=== PATIENT | female | born 1995 | race Caucasian/White ===

== ENCOUNTER → 2016-10-07 | Outpatient (CLI) | payer OTHER ==
--- NOTE | 2016-10-07 14:35 | CR ---
EXAMINATION: Two-view chest (PA and Lateral views). HISTORY: Abnormal breathing FINDINGS: The trachea is midline. The cardiomediastinal silhouette is within normal limits. No pulmonary infil trates, effusions or pneumothorax. Osseous structures appear unremarkable. IMPRESSION: No acute cardiopulmonary process.
== END ==
LOC: MW.CHRC 13:42
PROVIDERS: ATTEND Family Medicine
DX: R06.89 Other abnormalities of breathing (principal)
CPT/HCPCS: 36415; 71020; 71020-26; 85027; 87081; 87804; 87880

== ENCOUNTER 2016-10-09 21:21 | Emergency (ER) | payer OTHER ==
[2016-10-09] MEDS ORDERED: Acetaminophen/Codeine 120-12 MG/5 ML Soln 5 ML UD Cup PO ONE (21:43)
--- NOTE | 2016-10-09 21:48 | EDM.PDOC ---
ED HPI GENERAL MEDICAL PROBLEM - General Chief Complaint: Chest Pain Stated Complaint: CHEST PAIN/TROUBLE BREATHING /HEADACHE/COUGH Time Seen by Provider: 10/09/16 21:38 - History of Present Illness INITIAL COMMENTS - FREE TEXT/NARRATIVE: HISTORY AND PHYSICAL: History of present illness: Patient 21-year-old female recently diagnosed with pneumonia who is currently on Levaquin present since her chest pain she states this is worse with coughing she denies fever chills nausea vomiting or other concerns Review of systems: As per history of present illness and below otherwise all systems reviewed and negative. Past medical history: As per history of present illness and as reviewed below otherwise noncontributory. Surgical history: As per history of present illness and as reviewed below otherwise noncontributory. Social history: No reported history of drug or alcohol abuse. Family history: As per history of present illness and as reviewed below otherwise noncontributory. Physical exam: HEENT: Atraumatic, normocephalic, pupils reactive, negative for conjunctival pallor or scleral icterus, mucous membranes moist, throat clear, neck supple, nontender, trachea midline. Lungs: Coarse and lateral no wheezing breath sounds equal bilaterally, chest nontender. Heart: S1S2, regular, negative for clicks, rubs, or JVD. Abdomen: Soft, nondistended, nontender. Negative for masses or hepatosplenomegaly. Negative for costovertebral tenderness. Pelvis: Stable nontender. Genitourinary: Deferred. Rectal: Deferred. Extremities: Atraumatic, negative for cords or calf pain. Neurovascular unremarkable. Neuro: Awake, alert, oriented. Cranial nerves II through XII unremarkable. Cerebellum unremarkable. Motor and sensory unremarkable throughout. Exam nonfocal. Diagnostics: CBC CMP troponin EKG chest x-ray Therapeutics: Tylenol with Codeine 10 cc by mouth Impression: #1 pneumonitis #2 chest pain Definitive disposition and diagnosis as appropriate pending reevaluation and review of above. Middle Anterior Chest Pain Score (Numeric/FACES): 9 - Related Data Allergies Allergy/AdvReac Type Severity Reaction Status Date / Time No Known Allergies Allergy Verified 10/09/16 21:22 Home Meds: Home Meds Levofloxacin 1 tab PO DAILY 10/09/16 [History] Past Medical History HEENT History: Reports: None Cardiovascular History: Reports: None Respiratory History: Reports: Other (see below) Other Respiratory History: recently have pneumonia Gastrointestinal History: Reports: None Genitourinary History: Reports: None [employer]ION [employer]ENT History: Reports: None Musculoskeletal History: Reports: None Neurological History: Reports: None Psychiatric History: Reports: Anxiety Endocrine/Metabolic History: Reports: None Hematologic History: Reports: None Immunologic History: Reports: None Oncologic (Cancer) History: Reports: None Dermatologic History: Reports: None - Infectious Disease History Infectious Disease History: Reports: None - Past Surgical History GI Surgical History: Reports: Appendectomy Social & Family History - Family History Family Medical History: Noncontributory - Tobacco Use Smoking Status *Q: Never Smoker - Caffeine Use Caffeine Use: Reports: Coffee - Recreational Drug Use Recreational Drug Use: No ED ROS GENERAL - Review of Systems Review Of Systems: ROS reveals no pertinent complaints other than HPI. ED EXAM, GENERAL - Physical Exam Exam: See Below (See dictation) Course - Vital Signs Last Recorded V/S: Last Vital Signs Temp 36.6 C 10/09/16 21:22 Pulse 99 10/09/16 21:22 Resp 16 10/09/16 21:22 BP 138/78 10/09/16 21:22 Pulse Ox 99 10/09/16 21:22 - Orders/Labs/Meds Orders: Active Orders 24 hr Category Date Time Status EKG 12 Lead [EKG Documentation Completion] [RC] STAT Care 10/09/16 21:24 Active Chest 1V Frontal [CR] Stat Exams 10/09/16 21:25 Taken Labs: Laboratory Tests 10/09/16 10/09/16 10/09/16 Range/Units 21:50 21:50 21:50 WBC 5.88 (4.0-11.0) K/uL RBC 4.76 (4.30-5.90) M/uL Hgb 13.8 (12.0-16.0) g/dL Hct 39.2 (36.0-46.0) % MCV 82.4 (80.0-98.0) fL MCH 29.0 (27.0-32.0) pg MCHC 35.2 (31.0-37.0) g/dL RDW Std Deviation 40.7 (28.0-62.0) fl RDW Coeff of Sander 13 (11.0-15.0) % Plt Count 242 (150-400) K/uL MPV 9.70 (7.40-12.00) fL Neut % (Auto) 65.6 (48.0-80.0) % Lymph % (Auto) 19.6 (16.0-40.0) % [place] % (Auto) 12.4 (0.0-15.0) % Eos % (Auto) 1.9 (0.0-7.0) % Baso % (Auto) 0.5 (0.0-1.5) % Neut # 3.9 (1.4-5.7) K/uL Lymph # 1.2 (0.6-2.4) K/uL [place] # 0.7 (0.0-0.8) K/uL Eos # 0.1 (0.0-0.7) K/uL Baso # 0.0 (0.0-0.1) K/uL Nucleated RBC % 0.0 /100WBC Nucleated RBCs # 0 K/uL Sodium 142 (136-146) mmol/L Potassium 3.7 (3.5-5.1) mmol/L Chloride 110 (98-110) mmol/L Carbon Dioxide 21 (21-31) mmol/L BUN 12 (6.0-23.0) mg/dL Creatinine 1.1 (0.6-1.5) mg/dL Est Cr Clr Drug Dosing 85.26 mL/min Estimated GFR (MDRD) > 60.0 ml/min Glucose 97 (60-110) mg/dL Calcium 9.2 (8.8-10.8) mg/dL Total Bilirubin 0.4 (0.1-1.5) mg/dL AST 17 (5-40) IU/L ALT 12 (8-54) IU/L Alkaline Phosphatase 60 (40-150) CK-MB (CK-2) 0.8 (0-6.6) ng/ml Troponin I < 0.10 (0.0-0.29) NG/ML Total Protein 7.4 (6.0-8.0) g/dL Albumin 4.1 (3.5-5.0) g/dL Globulin 3.3 (2.0-3.5) g/dL Albumin/Globulin Ratio 1.2 L (1.3-2.8) Meds: Medications Discontinued Medications Generic Name Dose Route Start Last Admin Trade Name Freq PRN Reason Stop Dose Admin Acetaminophen/Codeine Phosphate 10 ml 10/09/16 21:43 10/09/16 21:50 Tylenol/Codeine 120-12 Mg/5 Ml PO 10/09/16 21:44 10 ml ONETIME ONE Administration Departure - Departure Time of Disposition: 22:44 Disposition: Home, Self-Care 01 Condition: good Clinical Impression: Pneumonitis Forms: ED Department Discharge Additional Instructions: The following information is given to patients seen in the emergency department who are being discharged to home. This information is to outline your options for follow-up care. We provide all patients seen in our emergency department with a follow-up referral. The need for follow-up, as well as the timing and circumstances, are variable depending upon the specifics of your emergency department visit. If you don't have a primary care physician on staff, we will provide you with a referral. We always advise you to contact your personal physician following an emergency department visit to inform them of the circumstance of the visit and for follow-up with them and/or the need for any referrals to a consulting specialist. The emergency department will also refer you to a specialist when appropriate. This referral assures that you have the opportunity for followup care with a specialist. All of these measure are taken in an effort to provide you with optimal care, which includes your followup. Under all circumstances we always encourage you to contact your private physician who remains a resource for coordinating your care. When calling for followup care, please make the office aware that this follow-up is from your recent emergency room visit. If for any reason you are refused follow-up, please contact the [facility] emergency department at and asked to speak to the emergency department charge nurse. Continue Levaquin Motrin or Tylenol as directed push fluids follow primary medical doctor within 2 days return as needed as discussed - My Orders Last 24 Hours: My Active Orders 10/09/16 21:24 EKG 12 Lead [EKG Documentation Completion] [RC] STAT 10/09/16 21:25 Chest 1V Frontal [CR] Stat - Assessment/Plan Last 24 Hours: My Active Orders 10/09/16 21:24 EKG 12 Lead [EKG Documentation Completion] [RC] STAT 10/09/16 21:25 Chest 1V Frontal [CR] Stat
[2016-10-09 22:20] LABS: CHLORIDE,CL 110 mmol/L (98-110); SODIUM,NA 142 mmol/L (136-146)
[2016-10-09 23:14] VITALS: BP 136/65
--- NOTE | 2016-10-10 15:08 | CR ---
EXAM DATE: 10/09/16 PATIENT'S AGE: 21 Patient: SADIA HALL Facility: [place], [place] Site . Site : 1995 Study: XRay Chest [id number]/8/2017 9:46:47 PM Ordering Physician: Doctor Mcqueen Final Report: Indication: Chest pain, recent diagnosis of pneumonia Technique: Chest 1 view Comparison: None Findings: Cardiovascular and mediastinum: Heart size and vasculature are normal in caliber and appearance. Mediastinum is within normal limits. Lungs and pleural space: Lungs are clear. No sign of infiltrate or mass. No sign of pleural effusion. No pneumothorax. Bones and soft tissues: No significant findings. Impression: : No acute abnormality is identified. Dictated by Carolina Child MD @ Oct 09 2016 9:58PM (Electronic Signature) Report Signed by Proxy and Original Signed Document filed in the Medical Record. JOSED
== END 2016-10-09 23:07 | disposition home or self-care (01) ==
LOC: MW.ED 21:21
DX: J18.9 Pneumonia, unspecified organism (principal); Z90.49 Acquired absence of other specified parts of digestive tract; Z79.899 Other long term (current) drug therapy
CPT/HCPCS: 36415; 71010; 80053; 82553; 84484; 85025; 93005; 99285; A9270; 99283

== ENCOUNTER 2018-11-11 10:40 | Emergency (ER) | payer OTHER ==
[2018-11-11] MEDS ORDERED: Sodium Chloride 0.9% 10 ML Syringe FLUSH PRN ×2 (10:46→10:47)
[2018-11-11] MEDS ORDERED: Sodium Chloride 0.9% 2.5 ML Syringe FLUSH PRN ×2 (10:46→10:47)
[2018-11-11] MEDS ORDERED: LORazepam 0.5 MG Tab PO ONE (10:49)
--- NOTE | 2018-11-11 10:49 | EDM.PDOC ---
ED HPI GENERAL MEDICAL PROBLEM - General Chief Complaint: Chest Pain Stated Complaint: CHEST PAIN Time Seen by Provider: 11/11/18 10:43 Source of Information: Reports: Patient History Limitations: Reports: No Limitations - History of Present Illness INITIAL COMMENTS - FREE TEXT/NARRATIVE: History of present illness: []Patient was in a class at 9 AM this morning and developed chest pain radiating to her left arm causing numbness and a headache. She denies any dizziness, headache, and as of breath, sweating or syncope. She is very anxious states she has a grandmother with a pacemaker. Review of systems: As per history of present illness and below otherwise all systems reviewed and negative. Past medical history: As per history of present illness and as reviewed below otherwise noncontributory. Surgical history: As per history of present illness and as reviewed below otherwise noncontributory. Social history: No reported history of drug or alcohol abuse. Family history: As per history of present illness and as reviewed below otherwise noncontributory. Physical exam: General: Well developed, well nourished in NAD HEENT: Atraumatic, normocephalic, pupils reactive, negative for conjunctival pallor or scleral icterus, mucous membranes moist, throat clear, neck supple, nontender, trachea midline. Lungs: Clear to auscultation, positive systolic murmur breath sounds equal bilaterally, chest nontender. Heart: S1S2, regular, negative for clicks, rubs, or JVD. Abdomen: NABS, Soft, nondistended, nontender. Negative for masses or hepatosplenomegaly. Negative for costovertebral tenderness. Pelvis: Stable nontender. Genitourinary: Deferred. Rectal: Deferred. Extremities: Atraumatic, negative for cords or calf pain. Neurovascular unremarkable. Neuro: Awake, alert, oriented. Cranial nerves II through XII unremarkable. Cerebellum unremarkable. Motor and sensory unremarkable throughout. Exam nonfocal. Skin:warm and dry Diagnostics: EKG, chest x-ray, CBC, chemistry, troponin, test, H. pylori, D dimer Therapeutics: Ativan, GI cocktail ED Course: Improved Impression: Symptomatic hypertension Prescriptions: None Plan: Follow-up with primary care Definitive disposition and diagnosis as appropriate pending reevaluation and review of above. Chest Pain Score (Numeric/FACES): 8 - Related Data Allergies Allergy/AdvReac Type Severity Reaction Status Date / Time azithromycin Allergy Rash Verified 11/11/18 10:54 Home Meds: Home Meds . 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 Musculoskeletal History: Reports: None Neurological History: Reports: None Psychiatric History: Reports: Anxiety Endocrine/Metabolic History: Reports: None Hematologic History: Reports: None Immunologic History: Reports: None Oncologic (Cancer) History: Reports: None Dermatologic History: Reports: None - Infectious Disease History Infectious Disease History: Reports: None - Past Surgical History GI Surgical History: Reports: Appendectomy Social & Family History - Family History Family Medical History: Noncontributory - Caffeine Use Caffeine Use: Reports: Coffee ED ROS GENERAL - Review of Systems Review Of Systems: ROS reveals no pertinent complaints other than HPI. ED EXAM, GENERAL - Physical Exam Exam: See Below (See history of present illness) Course - Vital Signs Last Recorded V/S: Last Vital Signs Temp 96.8 F 11/11/18 10:50 Pulse 85 11/11/18 13:40 Resp 16 11/11/18 13:40 BP 127/84 11/11/18 13:40 Pulse Ox 96 11/11/18 13:40 - Orders/Labs/Meds Orders: Active Orders 24 hr Category Date Time Status EKG Documentation Completion [RC] STAT Care 11/11/18 10:47 Active Saline Lock Insert [OM.PC] Stat Oth 11/11/18 10:46 Ordered Saline Lock Insert [OM.PC] Stat Oth 11/11/18 10:47 Ordered Labs: Laboratory Tests 11/11/18 11/11/18 11/11/18 Range/Units 10:52 10:54 10:54 WBC 6.12 (4.0-11.0) K/uL RBC 5.08 (4.30-5.90) M/uL Hgb 15.2 (12.0-16.0) g/dL Hct 42.4 (36.0-46.0) % MCV 83.5 (80.0-98.0) fL MCH 29.9 (27.0-32.0) pg MCHC 35.8 (31.0-37.0) g/dL RDW Std Deviation 42.1 (28.0-62.0) fl RDW Coeff of Sander 14 (11.0-15.0) % Plt Count 322 (150-400) K/uL MPV 9.70 (7.40-12.00) fL Neut % (Auto) 57.5 (48.0-80.0) % Lymph % (Auto) 30.4 (16.0-40.0) % [place] % (Auto) 9.5 (0.0-15.0) % Eos % (Auto) 1.8 (0.0-7.0) % Baso % (Auto) 0.8 (0.0-1.5) % Neut # (Auto) 3.5 (1.4-5.7) K/uL Lymph # (Auto) 1.9 (0.6-2.4) K/uL [place] # (Auto) 0.6 (0.0-0.8) K/uL Eos # (Auto) 0.1 (0.0-0.7) K/uL Baso # (Auto) 0.1 (0.0-0.1) K/uL Nucleated RBC % 0.0 /100WBC Nucleated RBCs # 0 K/uL D-Dimer, Quantitative < 0.19 (0.0-0.50) mg/L FEU Sodium 140 (136-145) mmol/L Potassium 3.8 (3.5-5.1) mmol/L Chloride 104 (98-107) mmol/L Carbon Dioxide 24.7 (21.0-32.0) mmol/L BUN 15 (7.0-18.0) mg/dL Creatinine 0.8 (0.6-1.0) mg/dL Est Cr Clr Drug Dosing TNP Estimated GFR (MDRD) > 60.0 ml/min Glucose 95 (74-106) mg/dL Calcium 9.7 (8.5-10.1) mg/dL Total Bilirubin 0.5 (0.2-1.0) mg/dL AST 19 (15-37) IU/L ALT 30 (14-63) IU/L Alkaline Phosphatase 83 (46-116) U/L Troponin I (0.000-0.056) ng/mL Total Protein 8.4 H (6.4-8.2) g/dL Albumin 4.4 (3.4-5.0) g/dL Globulin 4.0 (2.6-4.0) g/dL Albumin/Globulin Ratio 1.1 (0.9-1.6) TSH 3rd Generation (0.36-3.74) uIU/mL HCG, Qual (NEG) H. pylori IgG Antibody (NEG) 11/11/18 11/11/18 11/11/18 Range/Units 10:54 10:54 10:54 WBC (4.0-11.0) K/uL RBC (4.30-5.90) M/uL Hgb (12.0-16.0) g/dL Hct (36.0-46.0) % MCV (80.0-98.0) fL MCH (27.0-32.0) pg MCHC (31.0-37.0) g/dL RDW Std Deviation (28.0-62.0) fl RDW Coeff of Sander (11.0-15.0) % Plt Count (150-400) K/uL MPV (7.40-12.00) fL Neut % (Auto) (48.0-80.0) % Lymph % (Auto) (16.0-40.0) % [place] % (Auto) (0.0-15.0) % Eos % (Auto) (0.0-7.0) % Baso % (Auto) (0.0-1.5) % Neut # (Auto) (1.4-5.7) K/uL Lymph # (Auto) (0.6-2.4) K/uL [place] # (Auto) (0.0-0.8) K/uL Eos # (Auto) (0.0-0.7) K/uL Baso # (Auto) (0.0-0.1) K/uL Nucleated RBC % /100WBC Nucleated RBCs # K/uL D-Dimer, Quantitative (0.0-0.50) mg/L FEU Sodium (136-145) mmol/L Potassium (3.5-5.1) mmol/L Chloride (98-107) mmol/L Carbon Dioxide (21.0-32.0) mmol/L BUN (7.0-18.0) mg/dL Creatinine (0.6-1.0) mg/dL Est Cr Clr Drug Dosing Estimated GFR (MDRD) ml/min Glucose (74-106) mg/dL Calcium (8.5-10.1) mg/dL Total Bilirubin (0.2-1.0) mg/dL AST (15-37) IU/L ALT (14-63) IU/L Alkaline Phosphatase (46-116) U/L Troponin I < 0.050 (0.000-0.056) ng/mL Total Protein (6.4-8.2) g/dL Albumin (3.4-5.0) g/dL Globulin (2.6-4.0) g/dL Albumin/Globulin Ratio (0.9-1.6) TSH 3rd Generation 2.44 (0.36-3.74) uIU/mL HCG, Qual NEGATIVE (NEG) H. pylori IgG Antibody (NEG) 11/11/18 Range/Units 12:35 WBC (4.0-11.0) K/uL RBC (4.30-5.90) M/uL Hgb (12.0-16.0) g/dL Hct (36.0-46.0) % MCV (80.0-98.0) fL MCH (27.0-32.0) pg MCHC (31.0-37.0) g/dL RDW Std Deviation (28.0-62.0) fl RDW Coeff of Sander (11.0-15.0) % Plt Count (150-400) K/uL MPV (7.40-12.00) fL Neut % (Auto) (48.0-80.0) % Lymph % (Auto) (16.0-40.0) % [place] % (Auto) (0.0-15.0) % Eos % (Auto) (0.0-7.0) % Baso % (Auto) (0.0-1.5) % Neut # (Auto) (1.4-5.7) K/uL Lymph # (Auto) (0.6-2.4) K/uL [place] # (Auto) (0.0-0.8) K/uL Eos # (Auto) (0.0-0.7) K/uL Baso # (Auto) (0.0-0.1) K/uL Nucleated RBC % /100WBC Nucleated RBCs # K/uL D-Dimer, Quantitative (0.0-0.50) mg/L FEU Sodium (136-145) mmol/L Potassium (3.5-5.1) mmol/L Chloride (98-107) mmol/L Carbon Dioxide (21.0-32.0) mmol/L BUN (7.0-18.0) mg/dL Creatinine (0.6-1.0) mg/dL Est Cr Clr Drug Dosing Estimated GFR (MDRD) ml/min Glucose (74-106) mg/dL Calcium (8.5-10.1) mg/dL Total Bilirubin (0.2-1.0) mg/dL AST (15-37) IU/L ALT (14-63) IU/L Alkaline Phosphatase (46-116) U/L Troponin I (0.000-0.056) ng/mL Total Protein (6.4-8.2) g/dL Albumin (3.4-5.0) g/dL Globulin (2.6-4.0) g/dL Albumin/Globulin Ratio (0.9-1.6) TSH 3rd Generation (0.36-3.74) uIU/mL HCG, Qual (NEG) H. pylori IgG Antibody NEGATIVE (NEG) Meds: Medications Discontinued Medications Generic Name Dose Route Start Last Admin Trade Name Freq PRN Reason Stop Dose Admin Al Hydroxide/Mg Hydroxide 15 0 ml 11/11/18 12:35 11/11/18 12:52 ml/ Lidocaine HCl 5 ml PO 11/11/18 12:36 1 each ONETIME ONE Administration Ketorolac Tromethamine 30 mg 11/11/18 11:49 11/11/18 12:05 Toradol IVPUSH 11/11/18 11:50 30 mg ONETIME ONE Administration Lorazepam 0.5 mg 11/11/18 10:49 11/11/18 11:01 Ativan PO 11/11/18 10:50 0.5 mg ONETIME ONE Administration Nitroglycerin 0.4 mg 11/11/18 12:17 11/11/18 12:55 Nitrostat SL 11/11/18 12:18 Not Given ONETIME ONE Sodium Chloride 10 ml 11/11/18 10:46 11/11/18 11:02 Saline Flush FLUSH 10 ml ASDIRECTED PRN Administration Keep Vein Open Sodium Chloride 2.5 ml 11/11/18 10:46 Saline Flush FLUSH ASDIRECTED PRN Keep Vein Open Sodium Chloride 10 ml 11/11/18 10:47 11/11/18 11:03 Saline Flush FLUSH 10 ml ASDIRECTED PRN Administration Keep Vein Open Sodium Chloride 2.5 ml 11/11/18 10:47 11/11/18 11:03 Saline Flush FLUSH 2.5 ml ASDIRECTED PRN Administration Keep Vein Open Departure - Departure Time of Disposition: 13:13 Disposition: Home, Self-Care 01 Condition: Good Clinical Impression: Hypertension with goal of symptom management only Clinical Impression: (Ruled Out): Hypertensive urgency Instructions: Hypertension, [id number] Referrals: PCP,Unknown [Primary Care Provider] - Forms: ED Department Discharge Additional Instructions: The following information is given to patients seen in the emergency department who are being discharged to home. This information is to outline your options for follow-up care. We provide all patients seen in our emergency department with a follow-up referral. The need for follow-up, as well as the timing and circumstances, are variable depending upon the specifics of your emergency department visit. If you don't have a primary care physician on staff, we will provide you with a referral. We always advise you to contact your personal physician following an emergency department visit to inform them of the circumstance of the visit and for follow-up with them and/or the need for any referrals to a consulting specialist. The emergency department will also refer you to a specialist when appropriate. This referral assures that you have the opportunity for follow-up care with a specialist. All of these measure are taken in an effort to provide you with optimal care, which includes your follow-up. Under all circumstances we always encourage you to contact your private physician who remains a resource for coordinating your care. When calling for follow-up care, please make the office aware that this follow-up is from your recent emergency room visit. If for any reason you are refused follow-up, please contact the [facility] Emergency Department at and asked to speak to the emergency department charge nurse. [facility] [address] [place] [id number] - My Orders Last 24 Hours: My Active Orders 11/11/18 10:46 Saline Lock Insert [OM.PC] Stat 11/11/18 10:47 EKG Documentation Completion [RC] STAT Saline Lock Insert [OM.PC] Stat - Assessment/Plan Last 24 Hours: My Active Orders 11/11/18 10:46 Saline Lock Insert [OM.PC] Stat 11/11/18 10:47 EKG Documentation Completion [RC] STAT Saline Lock Insert [OM.PC] Stat
--- NOTE | 2018-11-11 11:25 | CR ---
EXAMINATION: Portable chest radiograph. HISTORY: Shortness of breath. FINDINGS: The trachea is midline. The cardiomediastinal silhouette is within normal limits. No pulmonary infiltrates, effusions or pneumothorax. Osseous structures appear unremarkable. IMPRESSION: No acute cardiopulmonary process.
[2018-11-11 11:39] LABS: CHLORIDE,CL 104 mmol/L (98-107); SODIUM,NA 140 mmol/L (136-145)
[2018-11-11] MEDS ORDERED: Ketorolac 30 MG/ML SDV IVPUSH ONE (11:49)
[2018-11-11] MEDS ORDERED: Nitroglycerin 0.4 MG Tab.SL SL ONE (12:17)
[2018-11-11] MEDS ORDERED: Alum Hydrox/Mag Hydrox/Simeth 15 ML, Lidocaine 2% 5 ML PO ONE ×2 (12:35)
[2018-11-11 13:41] VITALS: BP 127/84
== END 2018-11-11 13:37 | disposition home or self-care (01) ==
LOC: MW.ED 10:40
DX: I10 Essential (primary) hypertension (principal); Z88.1 Allergy status to other antibiotic agents
CPT/HCPCS: 36415; 71045; 80053; 84443; 84484; 84703; 85025; 85379; 86677; 93005; 96374; 99285; A9270; J1885